=== PATIENT | male | born 1995 | race American Indian/Alaskan Native ===

== ENCOUNTER 2020-10-11 15:02 | Emergency (ER) | payer OTHER ==
[2020-10-11 15:46] VITALS: BP 117/63
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
[2020-10-11] MEDS ORDERED: ACETAMINOPHEN 325 MG TAB PO ONE (17:18)
[2020-10-11] MEDS ORDERED: DIPHtheria,PERTUSSIS(ACELL),TETANUS VACCINE/PF 0.5 ML VIAL IM ONE (17:18)
[2020-10-11] MEDS ORDERED: NEOMY 3.5 MG/BACIT 400 UNITS/POLY B 5000 UNITS/GM OINT PACKET TP ONE (17:37)
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
== END 2020-10-11 19:05 | disposition home or self-care (01) ==
LOC: ED 15:02
DX: S16.1XXA Strain of muscle, fascia and tendon at neck level, initial encounter (principal); S08.0XXA Avulsion of scalp, initial encounter; S09.90XA Unspecified injury of head, initial encounter; Z79.899 Other long term (current) drug therapy; V49.49XA Driver injured in collision with other motor vehicles in traffic accident, initial encounter; Y93.89 Activity, other specified; Y92.488 Other paved roadways as the place of occurrence of the external cause; Y99.8 Other external cause status
CPT/HCPCS: 70450; 72125; 99283; A6250; 90715